=== PATIENT | male | born 1960 | race Caucasian/White ===

== ENCOUNTER 2020-09-22 19:29 | Inpatient (IN) | payer MEDICARE, MEDICAID ==
[~2020-09-22] VITALS: Ht 180.3 cm; Wt 117.7 kg
[~2020-09-22 19:29] MED LIST: AEROCHAMBER1 EA XX; PREDNISONE20 MG PO; VENTOLIN HFA 66.7 GM INH; VIBRAMYCIN100 MG PO
[2020-09-22 20:50] LABS: HEMOGLOBIN 12.9 gm/dl (14.0-17.5); RED BLOOD COUNT 4.07 M/UL (4.20-5.50); WHITE BLOOD COUNT 6.5 K/UL (4.5-11.0)
[2020-09-22 21:21] LABS: BUN/CREATININE RATIO 28 (0-10)
[2020-09-23] MEDS ORDERED: LISINOPRIL40 MG PO (00:43)
[2020-09-23] MEDS ORDERED: HYDROCHLOROTHIA25 MG PO (00:45)
[2020-09-23] MEDS ORDERED: OMEPRAZOLE20 MG PO (00:46)
[2020-09-23 04:09] LABS: HEMOGLOBIN 12.3 gm/dl (14.0-17.5); RED BLOOD COUNT 3.89 M/UL (4.20-5.50)
[2020-09-23 04:27] LABS: BUN/CREATININE RATIO 33 (0-10)
[2020-09-24 05:31] LABS: RED BLOOD COUNT 3.85 M/UL (4.20-5.50); WHITE BLOOD COUNT 5.1 K/UL (4.5-11.0)
[2020-09-24 06:33] LABS: BUN/CREATININE RATIO 43 (0-10)
[2020-09-25 05:26] LABS: HEMOGLOBIN 11.5 gm/dl (14.0-17.5); RED BLOOD COUNT 3.73 M/UL (4.20-5.50)
[2020-09-25 05:27] LABS: WHITE BLOOD COUNT 7.4 K/UL (4.5-11.0)
[2020-09-25 05:58] LABS: BUN/CREATININE RATIO 53 (0-10)
[2020-09-26 05:14] LABS: HEMOGLOBIN 12.2 gm/dl (14.0-17.5); RED BLOOD COUNT 3.92 M/UL (4.20-5.50); WHITE BLOOD COUNT 10.1 K/UL (4.5-11.0)
[2020-09-26 05:35] LABS: BUN/CREATININE RATIO 57 (0-10)
[2020-09-27 05:33] LABS: RED BLOOD COUNT 3.85 M/UL (4.20-5.50); WHITE BLOOD COUNT 9.1 K/UL (4.5-11.0)
[2020-09-27 05:53] LABS: BUN/CREATININE RATIO 51 (0-10)
[2020-09-28 04:37] LABS: HEMOGLOBIN 12.1 gm/dl (14.0-17.5); RED BLOOD COUNT 3.9 M/UL (4.20-5.50); WHITE BLOOD COUNT 9.5 K/UL (4.5-11.0)
[2020-09-28 05:11] LABS: BUN/CREATININE RATIO 46 (0-10)
[2020-09-29 05:32] LABS: HEMOGLOBIN 12.6 gm/dl (14.0-17.5); RED BLOOD COUNT 4.08 M/UL (4.20-5.50); WHITE BLOOD COUNT 10.5 K/UL (4.5-11.0)
[2020-09-29 06:08] LABS: BUN/CREATININE RATIO 36 (0-10)
--- NOTE | 2020-09-29 16:20 | NUR ---
PER MD, NEW ORDERS OBTAINED FOR LACTULOSE AND STOOL SOFTENER FOR CONSTIPATION. SEE EMAR.
[2020-09-30 05:11] LABS: HEMOGLOBIN 11.9 gm/dl (14.0-17.5); RED BLOOD COUNT 3.82 M/UL (4.20-5.50); WHITE BLOOD COUNT 8.6 K/UL (4.5-11.0)
[2020-09-30 05:33] LABS: BUN/CREATININE RATIO 33 (0-10)
--- NOTE | 2020-09-30 20:03 | NUR ---
PATIENT TRANSFERR[facility]. MEDICATIONS AND CHART GIVEN TO THELMA JON PATIENTS PRIMARY NURSE. PATIENT ALERT AND ORIENTED. 10L HIGH FLOW NASAL CANNULA IN PLACE. PATIENT BELONGINGS TRANSFERRED WITH THE PATIENT.
[2020-10-01 03:11] LABS: RED BLOOD COUNT 3.87 M/UL (4.20-5.50); WHITE BLOOD COUNT 7.4 K/UL (4.5-11.0)
[2020-10-01 03:40] LABS: BUN/CREATININE RATIO 34 (0-10)
[2020-10-02] MEDS ORDERED: ELIQUIS 5 MG TAB5 MG PO (08:57)
[2020-10-02] MEDS ORDERED: LOPRESSOR 25 MG25 MG PO (08:57)
[2020-10-02] MEDS ORDERED: METFORMIN HCL500 MG PO (09:11)
[2020-10-02 14:12] LABS: ORGANISM ID Not indicated. (.); SPECIMEN SOURCE Urine (.); STREPTOCOCCUS PNEUMONIAE AG Negative (Negative)
[2020-10-03 11:15] LABS: HBSAG SCREEN Negative (Negative); HEP A AB, IGM Negative (Negative); HEP B CORE AB, IGM Negative (Negative); HEP C VIRUS AB <0.1 (0.0-0.9)
== END 2020-10-02 15:04 | disposition home or self-care (01) | DRG 208 ==
LOC: ER1 19:29 → MED SURG 4 22:13 → CCU 22:13 → CDU 22:13 → MED SURG 4 09-23 00:03 → CCU 09-23 17:19 → PROG CARE 09-30 19:55
PROVIDERS: Internal Medicine; Internal Medicine Pulmonary Disease; Physician Assistant; ADMIT Internal Medicine
PROC: XW033E5 Introduction of Remdesivir Anti-infective into Peripheral Vein, Percutaneous Approach, New Technology Group 5 (ICD-10-PCS; principal; 2020-09-22)
PROC: 5A1945Z Respiratory Ventilation, 24-96 Consecutive Hours (ICD-10-PCS; principal; 2020-09-22)
PROC: 0BH17EZ Insertion of Endotracheal Airway into Trachea, Via Natural or Artificial Opening (ICD-10-PCS; principal; 2020-09-22)
DX: U07.1 COVID-19 (principal); J12.82 Pneumonia due to coronavirus disease 2019; A41.9 Sepsis, unspecified organism; J80 Acute respiratory distress syndrome; I47.2 Ventricular tachycardia; I82.612 Acute embolism and thrombosis of superficial veins of left upper extremity; I10 Essential (primary) hypertension; I25.10 Atherosclerotic heart disease of native coronary artery without angina pectoris; R74.01 Elevation of levels of liver transaminase levels; E66.9 Obesity, unspecified; E11.65 Type 2 diabetes mellitus with hyperglycemia; G89.29 Other chronic pain; M54.5 Low back pain; Z82.49 Family history of ischemic heart disease and other diseases of the circulatory system; Z79.4 Long term (current) use of insulin; Z68.30 Body mass index [BMI] 30.0-30.9, adult
CPT/HCPCS: ECHO; 36415; 36600; 71045; 80048; 80053; 80074; 80202; 82140; 82550; 82553; 82728; 82803; 82962; 83036; 83605; 83615; 83735; 83874; 83880; 84100; 84439; 84443; 84484; 85025; 85379; 85384; 85610; 86140; 86900; 86901; 86927; 87040; 87070; 87081; 87205; 87278; 87899; 93005; 93306; 93931; 93971; 94640; 94664; 94760; 96374; 99285; J0456; J0696; J1100; J1650; J1940; J2185; J3370; J7030; J7040; J7050; J7070